=== PATIENT | male | born 1990 | race Caucasian/White ===

== ENCOUNTER 2024-03-09 03:44 | Outpatient (CLI) | payer BC, SELFPAY ==
[2024-03-09 12:49] LABS: Calculated LDL 147 mg/dL (<100); Cholesterol 243 mg/dL (<200); HDL Cholesterol 46 mg/dL (40-60); Triglyceride 254 mg/dL (<150)
[2024-03-09 13:04] LABS: Hemoglobin A1C 5.1 % (<5.7)
== END 2024-03-09 03:45 | disposition home or self-care (01) ==
LOC: LOS 03:44
PROVIDERS: PCP Nurse Practitioner Family; Visit Provider Nurse Practitioner Family
DX: Z13.1 Encounter for screening for diabetes mellitus (principal); Z13.220 Encounter for screening for lipoid disorders
CPT/HCPCS: 36415; 80061; 83036

== ENCOUNTER 2024-12-02 10:24 | Outpatient (CLI) | payer BC, SELFPAY ==
--- NOTE | 2024-12-02 09:59 | DI.RAD_ITS ---
Exam(s) XR ANKLE RT COMPLETE EXAM: XR ANKLE RT COMPLETE CLINICAL HISTORY: right ankle pain S99.911A INJURY RT ANKLE. TECHNIQUE: 2D digital imaging was performed. COMPARISON: No exams were available for comparison FINDINGS: 3 views No evidence of fracture or widening the ankle mortise. Talar dome unremarkable. No obvious degenera tive changes. There is no osseous tarsal coalition. However, there is a dorsal talar scratched sinc e proximal to the talonavicular joint. This has benign appearance and is probably the attachment sit e of the tibiotalar joint capsule IMPRESSION: Findings as above but no acute osseous findings in the ankle. DATA REPOSITORY: RADIATION DOSE DELIVERED:
== END 2024-12-02 10:44 ==
LOC: DI 10:24
PROVIDERS: PCP Nurse Practitioner Family; Visit Provider Nurse Practitioner Family
DX: S99.911A Unspecified injury of right ankle, initial encounter (principal); X58.XXXA Exposure to other specified factors, initial encounter
CPT/HCPCS: 73610